=== PATIENT | male | born 1980 ===

== ENCOUNTER 2025-04-21 07:49 | Day surgery (SDC) | payer OTHER ==
[~2025-04-21] VITALS: Ht 170.2 cm; Wt 123.0 kg
[~2025-04-21 07:49] MED LIST: METF-1211 PO; SODIUM CHLORIDE 0.9% 1,000 ML ONE
[2025-04-21] MEDS: SODIUM CHLORIDE 0.9% 1,000 ML IV ONE (08:26)
[2025-04-21 09:01] LABS: GLUCOMETER DEV NAME(LOC) SDS.; GLUCOSE,POINT OF CARE 135 MG/DL (70-110)
[2025-04-21] MEDS ORDERED: PROPOFOL 1% 20 ML VIAL IVP ONE (12:00)
[2025-04-21] MEDS ORDERED: LIDOCAINE/PF 2% 5 ML VIAL ONE (12:00)
== END 2025-04-21 11:15 | disposition home or self-care (01) ==
LOC: SURGERY 07:49
PROVIDERS: ATTEND Internal Medicine
DX: R10.13 Epigastric pain (principal); K29.70 Gastritis, unspecified, without bleeding; E66.9 Obesity, unspecified; E11.9 Type 2 diabetes mellitus without complications; G47.33 Obstructive sleep apnea (adult) (pediatric); I10 Essential (primary) hypertension; K76.0 Fatty (change of) liver, not elsewhere classified; K59.04 Chronic idiopathic constipation; Z68.41 Body mass index [BMI] 40.0-44.9, adult; Z91.013 Allergy to seafood; Z79.84 Long term (current) use of oral hypoglycemic drugs; Z87.891 Personal history of nicotine dependence
CPT/HCPCS: 43239; 82962; 88305; C1769; J2704; J3490; J7030